=== PATIENT | female | born 1965 | race Caucasian/White ===

== ENCOUNTER 2020-01-19 12:31 | Emergency (ER) | payer BC ==
[~2020-01-19] VITALS: Ht 172.7 cm; Wt 55.9 kg
[2020-01-19 12:52] VITALS: TEMP 98.3
--- NOTE | 2020-01-19 13:29 | NUR ---
SW consulted for patient crying and appearing confused in the Admissions department. SW met with patient in Admission. Patient reports that she came in for a CT scan ordered by Eloy Senior at 10:00 a.m. Patient reports that her lower abdomin is hurting. Patient is not 3x alert or oriented and appears to be in and out of linear thought. Client cries abruptly and then is attempting to filter thought. Client reports that she is a recovering alcoholic and has not has any alcohol in 4 months. Client has an unsteady gait and was offered a wheelchair for patient safety. Patient is slurring her words and indicated she drove to the hospital. Patient reports that she is on medications to help her refrain from alcohol use. SW is under the impression that the patient may have consumed alcohol and taken pills. Patient denies this thought and reports that she last taken the pills yesterday morning. Patient was prompted about a soda bottle that she has and whether it contained alcohol, patient became guarded about bottle in her purse. Patient indicated that a few days ago, she started having thoughts that are "weird" her own verbal admission, patient made comments that are on the side of cautions for SI- She states that she wants to be with her spouse but does not say directly that she wants to . Patient reports that he spouse 3 years ago and her father Roldan is her EMR contact patient gave as his contact, this phone number is not valid. When prompted about other emr contacts, patient reports having a sponsor Álvaro but does not remember his phone number. SW prompted patient to be seen in the ED, medical concerns. Will continue to follow, notified house and ED steno pool supervisor.
[2020-01-19 14:38] LABS: BASO # 0.1 (0.0-0.2); BASO % 1.1 % (0.0-2.0); EOS # 0.1 (0.0-0.7); EOS % 1.1 % (0-4.0); GRAN # 1.5 (1.4-6.5); GRAN % 32.1 % (42.2-75.2); HEMATOCRIT 39.1 % (37.0-47.0); HEMOGLOBIN 13.7 g/dl (12.5-16.0); LYMPH # 2.7 (1.2-3.4); LYMPH % 58.2 % (20.0-51.0); MEAN CELL VOLUME 90 fl (80.0-100.0); MEAN CORPUSCULAR HEMOGLOBIN 31 pg (27.0-31.0); MEAN CORPUSCULAR HGB CONC 35 g/dl (33.0-37.0); MEAN PLATELET VOLUME 11.2 fl (7.4-10.4); MONO # 0.3 (0.1-0.6); MONO % 7.3 % (1.7-9.3); PLATELET COUNT 271 K/mm3 (130-400); RED BLOOD COUNT 4.36 M/mm3 (4.10-5.30); REDCELL DISTRIBUTION WIDTH-CV 14.2 % (11.5-14.5)
[2020-01-19 14:47] LABS: ALANINE AMINOTRANSFERASE 43 U/L (4-34); ALBUMIN 4.5 gm/dL (3.5-5.0); ALKALINE PHOSPHATASE 65 U/L (50-136); ANION GAP 12 mmol/L (7-16); AST,SGOT 73 U/L (15-37); BILIRUBIN,TOTAL 0.4 mg/dL (0.0-1.0); BLOOD UREA NITROGEN 8 mg/dL (7-17); CALCIUM 9.1 mg/dL (8.4-10.2); CARBON DIOXIDE 26 mmol/L (22-30); CHLORIDE 104 mmol/L (98-107); CREATININE, serum 0.74 (0.52-1.25); GLUCOSE 54 mg/dL (74-106); POTASSIUM 4.7 mmol/L (3.4-5.0); SODIUM 142 mmol/L (137-145); TOTAL PROTEIN 7.2 gm/dL (6.4-8.2)
[2020-01-19 14:55] LABS: ACETAMINOPHEN < 10 ug/mL (10-30); ALCOHOL(ethanol),MEDICAL 409 mg/dL; SALICYLATE < 1.0 mg/dL
[2020-01-19 15:16] LABS: TSH w REFLEX 0.539 uIU/mL (0.465-4.680)
[2020-01-19 15:43] LABS: COLLECTION METHOD CLEAN CATCH
[2020-01-19 15:52] LABS: PH 5 (5-8); SQUAMOUS EPITHELIAL 0-2 /hpf; URINE APPEARANCE Clear; URINE BACTERIA None Seen /hpf; URINE BILIRUBIN Negative (NEGATIVE); URINE BLOOD Negative (NEGATIVE); URINE COLOR Straw; URINE GLUCOSE Negative (NEGATIVE); URINE KETONE Negative (NEGATIVE); URINE LEUKOCYTE ESTERASE Negative (NEGATIVE); URINE NITRATE Negative (NEGATIVE); URINE PROTEIN(semi-quant) Negative (NEGATIVE); URINE RBC None Seen /hpf; URINE UROBILINOGEN Negative (NEGATIVE)
[2020-01-19 16:48] LABS: TRICYCLIC ANTIDEPRESS URINE NEGATIVE
[2020-01-20 09:27] VITALS: BP 124/72; PULSE 84
== END 2020-01-20 09:30 | disposition home or self-care (01) ==
LOC: COL.ER 12:31
PROVIDERS: Nurse Practitioner Family
DX: F10.120 Alcohol abuse with intoxication, uncomplicated (principal); Y90.8 Blood alcohol level of 240 mg/100 ml or more
CPT/HCPCS: J3411; J7030

== ENCOUNTER → 2020-01-19 | Outpatient (CLI) | payer BC | LOC: COL.RAD 08:00 | DX: K43.9 Ventral hernia without obstruction or gangrene (principal); Z90.49 Acquired absence of other specified parts of digestive tract ==

== ENCOUNTER 2021-02-20 13:43 | Emergency (ER) | payer OTHER ==
[~2021-02-20] VITALS: Ht 157.5 cm; Wt 52.3 kg
[2021-02-20 14:08] VITALS: TEMP 98.4
[2021-02-20 15:33] LABS: EOS % 0.2 % (0.0-4.0); GRAN # 1.6 K/mm3 (1.4-6.5); GRAN % 37.7 % (42.2-75.2); HEMATOCRIT 40.6 % (37.0-47.0); HEMOGLOBIN 14.5 g/dl (12.5-16.0); LYMPH # 1.9 K/mm3 (1.2-3.4); LYMPH % 45.5 % (20.0-51.0); MEAN CELL VOLUME 86 fl (80.0-100.0); MEAN CORPUSCULAR HEMOGLOBIN 31 pg (27-31); MEAN CORPUSCULAR HGB CONC 36 g/dl (33.0-37.0); MONO # 0.6 K/mm3 (0.1-0.6); MONO % 15.6 % (1.7-9.3); PLATELET COUNT 310 K/mm3 (130-400); RED BLOOD COUNT 4.74 M/mm3 (4.10-5.30); REDCELL DISTRIBUTION WIDTH-CV 14.2 % (11.5-14.5)
[2021-02-20 16:17] LABS: TROPONIN-I < 0.010 ng/mL (0.00-0.033)
[2021-02-20 16:24] LABS: ALANINE AMINOTRANSFERASE 60 U/L (0-55); ALBUMIN 4.1 gm/dL (3.5-5.0); ALKALINE PHOSPHATASE 98 U/L (40-150); AST,SGOT 99 U/L (5-34); BILIRUBIN,TOTAL 1.5 mg/dL (0.2-1.2); BLOOD UREA NITROGEN 12 mg/dL (10-20); CALCIUM 8.9 mg/dL (8.4-10.2); CARBON DIOXIDE 22 mmol/L (22-29); CHLORIDE 96 mmol/L (98-107); CREATININE, serum 0.82 mg/dL (0.57-1.11); GLUCOSE 87 mg/dL (70-99); POTASSIUM 4.2 mmol/L (3.5-4.5); SODIUM 136 mmol/L (136-145); TOTAL PROTEIN 7.5 gm/dL (6.2-8.1)
[2021-02-20 16:25] LABS: ANION GAP 18 mmol/L (7-16)
[2021-02-20 16:58] LABS: C-REACTIVE PROTEIN 0.71 mg/dL (0.00-0.50)
[2021-02-20] MEDS ORDERED: PREDNISONE20 MG PO (17:36)
[2021-02-20 17:41] VITALS: BP 130/81; PULSE 90
== END 2021-02-20 17:48 | disposition home or self-care (01) ==
LOC: COL.ER 13:43
PROVIDERS: Nurse Practitioner
DX: U07.1 COVID-19 (principal); J45.909 Unspecified asthma, uncomplicated
CPT/HCPCS: J7030; J7512; Q9967